=== PATIENT | male | born 1965 | race Caucasian/White ===

== ENCOUNTER 2018-01-23 00:04 | Inpatient (IN) ==
--- NOTE | 2018-01-23 00:37 | Emergency Department Note ---
Disposition Clinical Impression: Cellulitis Disposition: Admitted As Inpatient General Adult HPI - General Stated complaint: Swelling to toes Time Seen by Provider: 01/23/18 00:15 Source: patient Mode of arrival: ambulatory Limitations: no limitations Nursing Notes Reviewed: Yes Vital Signs Reviewed: Yes - History of Present Illness HPI Narrative: Patient was placed on antibiotics on and today he noticed his foot is more red streaking the emergency department for antibiotic IV according to his nurse practitioner. She told the nurse if the redness got any worse to come immediately to the emergency department. Patient states she noticed his foot was read earlier today and decided to wait until after midnight to come into the emergency department. He denies any fevers or chills nausea vomiting night sweats or other complaints. Onset (ago): day(s) (several) Location: left, lower extremity Radiation: non-radiation Pain Severity: mild Quality: burning Consistency: constant Improves with: nothing Worsens with: nothing Associated symptoms: Reports: denies other symptoms - Related Data Home Medications Medication Instructions Recorded Confirmed Aspirin Enteric Coated [Aspirin EC] 81 mg PO DAILY 09/13/15 01/23/18 Atorvastatin Calcium [Lipitor] 80 mg PO HS 09/13/15 01/23/18 Clopidogrel [Plavix] 75 mg PO DAILY 09/13/15 01/23/18 Metoprolol [Lopressor] 200 mg PO DAILY 09/13/15 01/23/18 Nitroglycerin [Nitrostat] 0.4 mg SL PRN PRN 09/13/15 01/23/18 Ranitidine HCl [Zantac] 150 mg PO BID PRN 09/13/15 01/23/18 Insulin Glargine,Hum.rec.anlog 35 unit SQ HS 11/10/17 01/23/18 [Basaglar Kwikpen U-100] Amlodipine Besylate 10 mg PO DAILY 11/11/17 01/23/18 Furosemide [Lasix] 20 mg PO Q48H PRN 11/11/17 01/23/18 Amoxicillin/Clavulanate [Augmentin] 875 mg PO BIDWM 01/23/18 01/23/18 BuPROPion XL (24 HR) [Wellbutrin 150 mg PO DAILY 01/23/18 01/23/18 XL] Doxycycline 100 mg PO BID 01/23/18 01/23/18 Isosorbide MONOnitrate [Isosorbide 30 mg PO BID 01/23/18 01/23/18 Mononitrate ER] Allergies Allergy/AdvReac Type Severity Reaction Status Date / Time No Known Allergies Allergy Verified 01/23/18 00:27 All systems ED: reviewed and negative except as stated. Review of Systems: As Per HPI Constitutional: Denies: fever, chills, weakness, weight change Eyes: Denies: eye pain, eye discharge, vision change ENT ED: Denies: ear pain, throat pain, dental pain, hearing loss, epistaxis, congestion, dysphagia Cardiovascular: Denies: chest pain, palpitations, dyspnea on exertion, edema, syncope Respiratory: Denies: cough, dyspnea, wheezes, hemoptysis, stridor Gastrointestinal: Denies: abdominal pain, nausea, vomiting, diarrhea, constipation, hematemesis, melena, hematochezia Genitourinary: Denies: urgency, dysuria, frequency, hematuria Musculoskeletal: Denies: back pain, neck pain, arthralgia, myalgia Integumentary: Denies: rash, abrasion, lesions Neurological: Denies: headache, weakness, numbness, paresthesias, confusion, abnormal gait, vertigo Psychiatric: Denies: anxiety, depression, suicidal thoughts, homicidal thoughts , auditory hallucinations, visual hallucinations Endocrine: Denies: fatigue Hematological/Lymphatic: Denies: easy bleeding, easy bruising Allergic/Immunologic: Denies: facial swelling, urticaria Past Medical History - Past Medical History Attestation: Yes The following information was validated with the patient. Source: patient Medical history: Reports: coronary artery disease, diabetes, GERD, hyperlipidemia, hypertension Surgical history: Reports: angioplasty/stent, arthroscopy, other Psychiatric history: Reports: no psych history - Social History Smoking Status: Current some day smoker Smokeless Tobacco Status: No Alcohol use: Reports: occasionally, recent Drug use: Reports: none Physical Exam - General Limitations: no limitations General appearance: alert, in no apparent distress - Head Head exam: atraumatic, normocephalic, normal inspection - Eye Eye exam: Present: normal appearance, PERRL, EOMI - ENT ENT exam: normal exam, normal oropharynx, mucous membranes moist - Neck Neck exam: Present: normal inspection, full ROM, trachea midline - Chest Chest inspection: Present: normal inspection, symmetric chest wall rise - Respiratory Respiratory exam: Present: normal lung sounds bilaterally - Cardiovascular Cardiovascular exam: Present: regular rate, normal rhythm, normal heart sounds - Abdominal Exam Abdominal exam: Present: soft - Extremities Exam Extremities exam: Present: other (redness and tenderness to dorsal left foot with 2nd toe with skin blistering and denuding skin) - Back Exam Back exam: Present: normal inspection - Neurological Exam Neurological exam: Present: alert, oriented X3 - Psychiatric Psychiatric exam: Present: normal affect, normal mood - Skin Skin exam: Present: warm, dry, intact, other (except as noted for left foot) Medical Decision Making - [facility] Narrative Medical decision making narrative: Case was discussed with Dr. Goode who accepts admission - Lab Data Lab results reviewed: Yes I reviewed the patient's lab results. Lab Results 01/23/18 Range/Units 00:13 POC Glucose 266 H (58-89)
[2018-01-23] MEDS ORDERED: 0.9 % Sodium Chloride 1,000 ML IVC SCH ×2 (00:45→04:02)
[2018-01-23 01:06] LABS: Basophils % 0.3 %; Eosinophils # 0.2 K/mcL (0.0-0.6); Eosinophils % 1.3 %; Hematocrit 31.5 % (37.5-50.1); Hemoglobin 10.7 g/dL (12.9-16.9); Immature Granulocytes % 0.3 % (0-4); Lymphocytes # 1.3 K/mcL (0.6-4.6); Lymphocytes % 11.3 %; Mean Corpuscular Volume 85.4 fL (83.0-100.0); Mean Platelet Volume 10.2 fL (9.4-12.4); Monocytes # 1.2 K/mcL (0.0-1.3); Monocytes % 10.6 %; Platelet Count 225 K/mcL (140-400); Red Blood Count 3.69 M/mcL (4.19-5.50); Red Cell Distribution Width 12.9 % (11.5-14.5); Segmented Neutrophils % 76.2 %
[2018-01-23] MEDS ORDERED: 0.9 % Sodium Chloride 250 ML IVC ONE (01:11)
[2018-01-23 01:27] LABS: Neutrophils # 8.8 K/mcL (1.6-8.9)
[2018-01-23] MEDS ORDERED: Famotidine 20 MG TABLET PO PRN (04:02)
[2018-01-23] MEDS ORDERED: Naloxone 0.4 MG/ML INJ IVP PRN (04:02)
[2018-01-23] MEDS ORDERED: Nitroglycerin 0.4 MG TAB.SUBL SL PRN (04:02)
[2018-01-23] MEDS ORDERED: Furosemide 20 MG TABLET PO PRN (04:02)
[2018-01-23] MEDS ORDERED: Doxycycline 100 MG CAPSULE PO SCH (09:00)
[2018-01-23] MEDS: BuPROPion XL (24 HR) 150 MG TABLET PO SCH (09:10)
[2018-01-23] MEDS: Isosorbide MONOnitrate (24 HR) 30 MG TAB.ER.24H PO SCH ×2 (09:10→20:35)
[2018-01-23] MEDS: Metoprolol XL (24 HR) Succ 50 MG TAB.ER.24H PO SCH (09:10)
[2018-01-23] MEDS: Aspirin Enteric Coated 81 MG Tablet PO SCH (09:10)
[2018-01-23] MEDS: amLODIPine 5 MG TABLET PO SCH (09:10)
--- NOTE | 2018-01-23 09:19 | Internal Med History&Physical ---
Date of Encounter: 01/23/18 Time of Encounter: 09:16 Assessment and Plan (1) Diabetes mellitus Current visit: Yes Status: Chronic on Insulin . will continue to monitor and adjsut his dose . Blood sugar was more then 200 last blood check Qualifiers: Diabetes mellitus type: type 2 Diabetes mellitus complication status: with unspecified complications Qualified Code(s): E11.8 - Type 2 diabetes mellitus with unspecified complications; Z79.4 - half-way (current) use of insulin; Z79.4 - intermediate project manager (current) use of insulin; Z79.4 - half-way (current) use of insulin; Z79.4 - intermediate project manager (current) use of insulin (2) Diabetic foot ulcer associated with diabetes mellitus due to underlying condition Current visit: Yes Status: Acute HBA1c ordered on insulin conitnue meds Blood Sugars AC and HS adjust as needed Qualifiers: Laterality: left Non-pressure ulcer stage: with muscle involvement without evidence of necrosis Qualified Code(s): E08.621 - Diabetes mellitus due to underlying condition with foot ulcer; L97.525 - Non-pressure chronic ulcer of other part of left foot with muscle involvement without evidence of necrosis; L97.525 - Non-pressure chronic ulcer of other part of left foot with muscle involvement without evidence of necrosis; L97.525 - Non-pressure chronic ulcer of other part of left foot with muscle involvement without evidence of necrosis ; L97.525 - Non-pressure chronic ulcer of other part of left foot with muscle involvement without evidence of necrosis (3) Cellulitis Current visit: Yes Status: Acute ulcer on his second toe nail is broken there is some fluctuation at the bottom of the toe on his pulp . redness extending upto middle dorsum . He received one dose of Van . Will clean ., get local cultures start IV broad spectrum Zosyn , MRI foot to r/o osteo and other supportive care / D/C IV fluids. Also to contact his podiatry if the has one for debridement if needed . Local Aquae Ag or equivalent dressing every day . He was oral Doxy and Augmentin. Failure to out patient oral antibiotics Qualifiers: Site of cellulitis of extremity: toe Laterality: left Qualified Code(s): L03.032 - Cellulitis of left toe Internal Medicine - H&P: HPI Admitted From: Home (lives jose tent) History of present illness: Mr. Escobar is a 52 year old male pt was admitted from ED where he came with increasing redness of the middle toe left side . he was taking oral Antibiosis and was told that if the redness gets worse he should go to the ED He denies any SOB Chest pain cough , nausea vomiting or any other complains He doens have some pain in his toe . His blood sugars are slightly high as well. He doesn't recall if he injured his foot . Past Med Surg Social Fam HX - Past Medical History Medical history: coronary artery disease, diabetes, GERD, hyperlipidemia, hypertension Psychiatric history: no psych history - Past Surgical History Surgical History: angioplasty/stent, arthroscopy, other - Social History Smoking Status: Former smoker Smokeless Tobacco Status: No Alcohol use: occasionally, recent Drug use: none - Family History Mother Family Member Ethnicity: Non- Living Status: Still Living Hx Family Cardiac Disorders: No Hx Family Respiratory Disorders: No Hx Family Cancer: No Father Living Status: Still Living Hx Family Endocrine Disorder: Yes (DM) Internal Medicine - H&P: Meds Aspirin Enteric Coated [Aspirin EC] 81 mg PO DAILY 09/13/15 [History] Atorvastatin Calcium [Lipitor] 80 mg PO HS 09/13/15 [History] Clopidogrel [Plavix] 75 mg PO DAILY 09/13/15 [History] Metoprolol [Lopressor] 200 mg PO DAILY 09/13/15 [History] Nitroglycerin [Nitrostat] 0.4 mg SL PRN PRN 09/13/15 [History] Ranitidine HCl [Zantac] 150 mg PO BID PRN 09/13/15 [History] Insulin Glargine,Hum.rec.anlog [Basaglar Kwikpen U-100] 35 unit SQ HS 11/10/17 [ History] Amlodipine Besylate 10 mg PO DAILY 11/11/17 [History] Furosemide [Lasix] 20 mg PO Q48H PRN 11/11/17 [History] Amoxicillin/Clavulanate [Augmentin] 875 mg PO BIDWM 01/23/18 [History] BuPROPion XL (24 HR) [Wellbutrin XL] 150 mg PO DAILY 01/23/18 [History] Doxycycline 100 mg PO BID 01/23/18 [History] Isosorbide MONOnitrate [Isosorbide Mononitrate ER] 30 mg PO BID 01/23/18 [ History] 3 Allergy/AdvReac Type Severity Reaction Status Date / Time No Known Allergies Allergy Verified 01/23/18 00:27 All Systems PM: A 10-system review of systems was performed and is negative for pertinent findings except as documented above in the HPI. - Constitutional Constitutional: fatigue, fever(s), no anorexia, no chills, no excessive sweating , no falls, no lethargy, no malaise, no night sweats, no weakness, no weight gain, no weight loss - EENT Eyes: no blurry vision, no diplopia, no discharge, no itchy eyes, no photophobia Ears: no decreased hearing, no ear discharge Nose, mouth and throat: no bleeding gums, no dry mouth, no lip swelling, no sinus pain, no sinus pressure, no sore throat - Cardiovascular Cardiovascular ROS IM: no chest pain, no claudication, no diaphoresis, no dyspnea, no dyspnea on exertion, no edema, no irregular heart rhythm, no lightheadedness, no orthopnea, no palpitations, no paroxysmal nocturnal dyspnea - Respiratory Respiratory: no cough, no dyspnea, no hemoptysis, no wheezing, no snoring, no pain on inspiration, no chest congestion, no change in phlegm color - Gastrointestinal Gastrointestinal: no abdominal pain, no belching, no bloating, no change in bowel habits, no diarrhea, no dyspepsia, no fecal incontinence, no heartburn, no hematemesis, no hematochezia, no loose stools, no melena, no nausea - Genitourinary Genitourinary ROS male: no dysuria, no flank pain, no genital lesions, no nocturia, no post void dribbling, no urinary hesitancy, no urinary incontinence - Musculoskeletal Musculoskeletal ROS IM: arthralgias, no joint swelling, no limited range of motion, no myalgias - Integumentary Integumentary IM: erythema, no pruritus, no rash, no unusual bruising Additional comments: foot and dorsum of left foot - Neurological Neurological ROS: no abnormal gait, no abnormal hearing, no behavioral changes, no confusion, no convulsions, no disequilibrium, no loss of vision, no radicular pain, no restless legs, no tremor(s), no weakness - Constitutional Vitals: Temp Pulse Resp BP Pulse Ox 97.6 F 78 18 170/86 94 01/23/18 07:00 01/23/18 07:00 01/23/18 07:00 01/23/18 07:00 01/23/18 07:00 General appearance: Present: A&O X 3, pleasant, obese, answers questions appropriately. Absent: no acute distress, severe distress - Head Head exam: Present: atraumatic - Eye Eye exam: Present: PERRL. Absent: scleral icterus, conjuntiva pink Pupils: Present: PERRL - ENT ENT exam: Present: mucous membranes moist - Neck Neck exam general surgery: Present: normal inspection, supple. Absent: tenderness, nuchal rigidity Additional comments: wearing a collar around his zamora with tags - Respiratory Respiratory exam: Present: CTAB. Absent: chest wall tenderness, respiratory distress, rhonchi, stridor, wheezes, tachypnea - Cardiovascular Cardiovascular exam: Present: RRR, +S1, +S2. Absent: irregular rhythm, JVD - GI/Abdominal GI/Abdominal exam: Present: normal bowel sounds, soft. Absent: distended, firm , guarding, rebound, rigid - Extremities Exam Extremities exam: Present: pedal edema, tenderness, warm Additional comments: left middle toe swollen red , has some fluctuation ,no discharge seems nail is almost broken .redness expanding to dorsum of the foot upto middle Pulses ++ bot pedal and post tibial . warm to touch some mild tenderness - Neurological Exam Neurological exam: Present: alert, CN II-XII intact, oriented X3, no focal deficits, strengths equal and symetr throughout. Absent: pronater drift, facial droop, speech deficit Internal Med - H&P Results - Labs CBC & Chem 7: 01/23/18 01:03 01/23/18 01:03
[2018-01-23] MEDS ORDERED: Piperacillin/Tazobactam 3.375 GM in 0.9 % Sodium Chloride Mini Bag 100 ML IVPB SCH ×2 (16:00→21:00)
[2018-01-23] MEDS: Insulin DETEMIR 100 UNIT/ML X5UNITS SQ SCH (20:35)
[2018-01-23] MEDS: Piperacillin/Tazobactam 3.375 GM in 0.9 % Sodium Chloride Mini Bag 100 ML IVPB SCH (23:54)
[2018-01-24 04:45] LABS: Hematocrit 28.6 % (37.5-50.1); Hemoglobin 9.5 g/dL (12.9-16.9); Mean Corpuscular HGB Conc 33.2 g/dL (31.6-35.5); Mean Corpuscular Hemoglobin 28.4 pg (28.0-33.3); Mean Corpuscular Volume 85.4 fL (83.0-100.0); Mean Platelet Volume 10.2 fL (9.4-12.4); Platelet Count 206 K/mcL (140-400); Red Blood Count 3.35 M/mcL (4.19-5.50); Red Cell Distribution Width 12.8 % (11.5-14.5)
[2018-01-24 05:00] LABS: Calcium 8.7 mg/dL (8.6-10.3)
[2018-01-24] MEDS: Aspirin Enteric Coated 81 MG Tablet PO SCH (08:41)
[2018-01-24] MEDS: Metoprolol XL (24 HR) Succ 50 MG TAB.ER.24H PO SCH (08:41)
[2018-01-24] MEDS: amLODIPine 5 MG TABLET PO SCH (08:41)
[2018-01-24] MEDS: BuPROPion XL (24 HR) 150 MG TABLET PO SCH (08:41)
[2018-01-24] MEDS: Isosorbide MONOnitrate (24 HR) 60 MG TAB.ER.24H PO SCH (08:45)
--- NOTE | 2018-01-24 09:06 | Internal Med Progress Note ---
Date of Encounter: 01/24/18 Time of Encounter: 09:04 - Assessment and plan (1) Diabetes mellitus Current Visit: Yes Status: Chronic Assessment and plan: stable and improving continue present medications . Qualifiers: Diabetes mellitus type: type 2 Diabetes mellitus complication status: with unspecified complications Qualified Code(s): E11.8 - Type 2 diabetes mellitus with unspecified complications; Z79.4 - conference concierge (current) use of insulin; Z79.4 - conference concierge (current) use of insulin; Z79.4 - conference concierge (current) use of insulin; Z79.4 - conference concierge (current) use of insulin (2) Diabetic foot ulcer associated with diabetes mellitus due to underlying condition Current Visit: Yes Status: Acute Assessment and plan: ulcer of the toe, also has osteomylitis . Local skin redness is getting better and will require on call pharmacy technician antibiotics for atleast 4/6 weeks as out patient . Another option is to have podiatry see him and intervene. Qualifiers: Laterality: left Non-pressure ulcer stage: with muscle involvement without evidence of necrosis Qualified Code(s): E08.621 - Diabetes mellitus due to underlying condition with foot ulcer; L97.525 - Non-pressure chronic ulcer of other part of left foot with muscle involvement without evidence of necrosis; L97.525 - Non-pressure chronic ulcer of other part of left foot with muscle involvement without evidence of necrosis; L97.525 - Non-pressure chronic ulcer of other part of left foot with muscle involvement without evidence of necrosis ; L97.525 - Non-pressure chronic ulcer of other part of left foot with muscle involvement without evidence of necrosis (3) Cellulitis Current Visit: Yes Status: Acute Assessment and plan: foot wbc back to normal redness is getting better in his foot. Qualifiers: Site of cellulitis of extremity: toe Laterality: left Qualified Code(s): L03.032 - Cellulitis of left toe (4) Renal insufficiency Current Visit: Yes Status: Acute Assessment and plan: Creatinine 2.1 ,improved after IV fluids and oral intake . Continue to improve Most likely due to dehydration . He lives in a tent and is Homeless.by choice . . - Subjective Interval history: Followup he seems to be doing fine States that he takes Imdur 2 tabs in the monring and one evening NO other issues no pain in foot . Xray shows osteomylitis - Constitutional Vitals: Temp Pulse Resp BP Pulse Ox 98.0 F 87 18 138/83 94 01/24/18 07:05 01/24/18 07:05 01/24/18 07:05 01/24/18 07:05 01/24/18 07:05 General appearance: Present: A&O X 3, pleasant, obese, answers questions appropriately. Absent: no acute distress, severe distress - Head Head exam: Present: atraumatic - Eye Eye exam: Present: PERRL. Absent: scleral icterus, conjuntiva pink Pupils: Present: PERRL - Neck Neck exam general surgery: Present: supple. Absent: nuchal rigidity - Respiratory Respiratory exam: Present: CTAB. Absent: respiratory distress, rhonchi, stridor , wheezes, tachypnea - Cardiovascular Cardiovascular exam: Present: RRR, +S1, +S2. Absent: irregular rhythm, JVD - GI/Abdominal GI/Abdominal exam: Present: normal bowel sounds, soft. Absent: distended, firm , rebound, rigid Additional comments: obese - Extremities Exam Extremities exam: Absent: pedal edema, tenderness Additional comments: local wound noted no new change no discharge - Neurological Exam Neurological exam: Present: CN II-XII intact, oriented X3, no focal deficits. Absent: facial droop, speech deficit Internal Medicine: Result - Labs CBC & Chem 7: 01/24/18 04:25 01/24/18 04:25 Labs: Short CBC 01/24/18 Range/Units 04:25 WBC 10.8 (4.3-11.1) K/mcL Hgb 9.5 L (12.9-16.9) g/dL Hct 28.6 L (37.5-50.1) % Plt Count 206 (140-400) K/mcL BMP 01/24/18 04:25 Sodium 136 Potassium 4.0 Chloride 107 Carbon Dioxide 23 BUN 23 H Creatinine 1.69 H Glucose 82 Calcium 8.7 - Impressions Impressions Toe X-Ray 01/23/18 12:30 IMPRESSION: 1. Osteomyelitis involving the tuft of the 2nd distal phalanx with an associated pathologic fracture through the base of the 2nd distal phalanx. 2. Interval healing of the fracture involving the mid diaphysis of the 5th metatarsal. D/ /23/2018 14:42:13 Lobito Solo MD / fern Interpreting Provider: Lobito Solo MD Consult Discharge Plan - Plan
[2018-01-24] MEDS: Piperacillin/Tazobactam 3.375 GM in D5% in Water (Mini-Bag+) 100 ML IVPB SCH ×2 (09:56→17:45)
[2018-01-24] MEDS: Piperacillin/Tazobactam 3.375 GM in 0.9 % Sodium Chloride Mini Bag 100 ML IVPB SCH (10:11)
[2018-01-24] MEDS: Insulin DETEMIR 100 UNIT/ML X5UNITS SQ SCH (20:21)
[2018-01-24] MEDS ORDERED: Isosorbide MONOnitrate (24 HR) 30 MG TAB.ER.24H PO SCH (21:00)
[2018-01-24] MEDS: Acetaminophen 325 MG TABLET PO PRN (23:24)
[2018-01-25] MEDS: Piperacillin/Tazobactam 3.375 GM in D5% in Water (Mini-Bag+) 100 ML IVPB SCH ×2 (01:27→09:54)
[2018-01-25] MEDS: BuPROPion XL (24 HR) 150 MG TABLET PO SCH (08:02)
[2018-01-25] MEDS: Isosorbide MONOnitrate (24 HR) 60 MG TAB.ER.24H PO SCH ×2 (08:03→21:34)
[2018-01-25] MEDS: amLODIPine 5 MG TABLET PO SCH (08:03)
[2018-01-25] MEDS: Aspirin Enteric Coated 81 MG Tablet PO SCH (08:03)
[2018-01-25] MEDS: Metoprolol XL (24 HR) Succ 50 MG TAB.ER.24H PO SCH (08:03)
[2018-01-25] MEDS ORDERED: Piperacillin/Tazobactam 3.375 GM in 0.9 % Sodium Chloride Mini Bag 100 ML IVPB SCH (12:00)
[2018-01-25] MEDS: Ampicillin/Sulbactam 1,500 MG in 0.9 % Sodium Chloride Mini Bag 100 ML IVPB SCH ×2 (18:19→23:31)
[2018-01-25] MEDS: Acetaminophen 325 MG TABLET PO PRN (21:34)
[2018-01-25] MEDS: Insulin DETEMIR 100 UNIT/ML X5UNITS SQ SCH (21:36)
[2018-01-26] MEDS: Ampicillin/Sulbactam 1,500 MG in 0.9 % Sodium Chloride Mini Bag 100 ML IVPB SCH ×3 (05:19→19:38)
[2018-01-26] MEDS: amLODIPine 5 MG TABLET PO SCH (06:51)
[2018-01-26] MEDS: Isosorbide MONOnitrate (24 HR) 60 MG TAB.ER.24H PO SCH ×2 (06:52→20:57)
[2018-01-26] MEDS: Metoprolol XL (24 HR) Succ 50 MG TAB.ER.24H PO SCH (06:52)
[2018-01-26] MEDS: Aspirin Enteric Coated 81 MG Tablet PO SCH (09:00)
[2018-01-26] MEDS: BuPROPion XL (24 HR) 150 MG TABLET PO SCH (09:00)
--- NOTE | 2018-01-26 09:24 | Internal Med Progress Note ---
Date of Encounter: 01/26/18 Time of Encounter: 09:20 - Assessment and plan (1) Diabetic foot ulcer associated with diabetes mellitus due to underlying condition Current Visit: Yes Status: Acute Assessment and plan: ulcer of the toe, has b een on IV atb. scheduled for outpatient surgery at [facility] today. on insulin for coverage of glucose. monitor FSBS. Qualifiers: Laterality: left Non-pressure ulcer stage: with muscle involvement without evidence of necrosis Qualified Code(s): E08.621 - Diabetes mellitus due to underlying condition with foot ulcer; L97.525 - Non-pressure chronic ulcer of other part of left foot with muscle involvement without evidence of necrosis; L97.525 - Non-pressure chronic ulcer of other part of left foot with muscle involvement without evidence of necrosis; L97.525 - Non-pressure chronic ulcer of other part of left foot with muscle involvement without evidence of necrosis ; L97.525 - Non-pressure chronic ulcer of other part of left foot with muscle involvement without evidence of necrosis - Time Spent With Patient less than 15 minutes - Subjective Interval history: pt scheduled for outpatient surgery at [facility] for amputation of left middle toe due to infection. denies pain or concerns at this time. denies SOB , chest pain, fever and chills. - Constitutional Vitals: Temp Pulse Resp BP Pulse Ox 98.7 F 86 16 150/77 95 01/26/18 07:23 01/26/18 07:23 01/26/18 07:23 01/26/18 07:23 01/26/18 07:23 General appearance: Present: A&O X 3, pleasant, obese, answers questions appropriately. Absent: no acute distress, severe distress - Head Head exam: Present: atraumatic, normocephalic - Eye Eye exam: Present: PERRL, conjuntiva pink, sclera anicteric Pupils: Present: PERRL - Neck Neck exam general surgery: Present: supple, trachea midline. Absent: lymphadenopathy - Respiratory Respiratory exam: Present: CTAB. Absent: accessory muscle use, rales, rhonchi, wheezes - Cardiovascular Cardiovascular exam: Present: RRR, +S1, +S2. Absent: diastolic murmur, gallop, rubs, systolic murmur - GI/Abdominal GI/Abdominal exam: Present: normal bowel sounds, soft, no peritoneal signs. Absent: distended, tenderness - Extremities Exam Extremities exam: Present: warm, radial pulses palpable and symmetrical. Absent : calf tenderness, cyanotic, pedal edema - Neurological Exam Neurological exam: Present: CN II-XII intact, oriented X3, no focal deficits. Absent: pronater drift, facial droop, speech deficit - Skin Skin exam: Present: dry, intact Additional comments: toes on left foot covered with dry drsg. no warmth, tenderness or edema to surrounding area. Internal Medicine: Result - Labs CBC & Chem 7: 01/24/18 04:25 01/24/18 04:25 Consult Discharge Plan - Plan Referrals: Sisi Duvall, RUDDY [Primary Care Provider] -
--- NOTE | 2018-01-26 10:53 | Internal Med Progress Note ---
Date of Encounter: 01/25/18 Time of Encounter: 10:00 - Assessment and plan (1) Diabetic foot ulcer Current Visit: No Status: Acute Assessment and plan: He is to complete Zosyn today. Based upon his culture Streptococcus species, will continue on Unasyn. I spoke at length with Dr. irizarry of podiatry and hospital administration. I also spoke with anesthesia at [facility]. 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 Depending on infection or involvement there, he may need ongoing antibiotics IV. If not, he could potentially be discharged on suppressive oral medications. Because of his chest discomfort, I asked anesthesia he needed any cardiology evaluation preop. Dr. Hartmann did not feel this was necessary. He was fine with increasing his indoor as noted below. We will hold his medications except for cardiovascular medications on the morning of surgery. Anesthesia asked that we hold his Lasix, this evening. 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 Qualifiers: Diabetes mellitus type: type 2 Diabetes mellitus complication status: with unspecified complications Qualified Code(s): E11.8 - Type 2 diabetes mellitus with unspecified complications; Z79.4 - shelter (current) use of insulin; Z79.4 - termination clerk (current) use of insulin; Z79.4 - shelter (current) use of insulin; Z79.4 - shelter (current) use of insulin (3) Renal insufficiency Current Visit: Yes Status: Acute Assessment and plan: Clinically stable to improved. We will follow intermittently. (4) Coronary artery disease Current Visit: Yes Status: Acute Assessment and plan: As above, will increase his Imdur from 60 in the morning and 30 in the evening to 6o mg twice a day. Qualifiers: Coronary Disease-Associated Artery/Lesion type: [place] artery [place] vs. transplanted heart: [place] heart Associated angina: with stable angina Qualified Code(s): I25.118 - Atherosclerotic heart disease of [place] coronary artery with other forms of angina pectoris - Time Spent With Patient 25 - 35 minutes - Subjective Interval history: Patient is feeling better. He notes decreased redness and swelling of the left second toe. Pain is now down to about 2/10. He denies fever, chills, sweats, etc. However, nursing notes that he has a mild elevation of his temperature. He admits to brief episodes of chest tightness that are his anginal symptoms. He has used no nitroglycerin as the discomfort resolve spontaneously. He has nitroglycerin available which he wears and an ampule around his neck. I encouraged him to use nitroglycerin with the supervision of the nurses here so they could document his use of same. He voices understanding. He has been discussing possible increase in his Imdur, with his animal ecologist. The next step they have discussed his to go to 60 mg twice a day and I told him we will go ahead and do that now. Patient has no complaint of chest discomfort, dyspnea, orthopnea, palpitations, nausea or vomiting, constipation or diarrhea, other changes in bowel habits, difficulty with urination, rash or itching, or other new complaints. Review of systems is otherwise unremarkable. We discussed antibiotics, culture results, plans to have input of podiatry, in clinic today. - Constitutional General appearance: Present: A&O X 3, pleasant, obese, answers questions appropriately. Absent: no acute distress, severe distress - Head Head exam: Present: atraumatic, normal inspection, normocephalic - Respiratory Respiratory exam: Present: CTAB. Absent: accessory muscle use - Cardiovascular Cardiovascular exam: Present: RRR. Absent: systolic murmur - GI/Abdominal GI/Abdominal exam: Absent: hepatomegaly, mass, pulsatile mass, splenomegaly, tenderness Additional comments: Obese and therefore difficult to palpate deeply. - Extremities Exam Extremities exam: Present: normal capillary refill. Absent: calf tenderness, pedal edema Additional comments: He has an open lesion at the tip of his left second toe. The left toe, itself, is only minimal erythematous and there is no erythema at the foot dorsum, as previously described. In other words, this seems quite improved first is previous examinations. - Neurological Exam Neurological exam: Present: CN II-XII intact, oriented X3, strengths equal and symetr throughout. Absent: facial droop, speech deficit - Psychiatric Psychiatric exam: Present: normal affect. Absent: anxious, depressed Internal Medicine: Result - Labs CBC & Chem 7: 01/24/18 04:25 18 04:25 Consult Discharge Plan - Plan Referrals: Sisi Duvall, FINISHING AREA OPERATOR [Primary Care Provider] -
[2018-01-26] MEDS: Insulin DETEMIR 100 UNIT/ML X5UNITS SQ SCH (20:58)
[2018-01-27] MEDS: Ampicillin/Sulbactam 1,500 MG in 0.9 % Sodium Chloride Mini Bag 100 ML IVPB SCH ×4 (00:37→21:44)
[2018-01-27] MEDS: Acetaminophen 325 MG TABLET PO PRN ×2 (00:38→10:31)
[2018-01-27] MEDS: Metoprolol XL (24 HR) Succ 50 MG TAB.ER.24H PO SCH (10:25)
[2018-01-27] MEDS: Aspirin Enteric Coated 81 MG Tablet PO SCH (10:25)
[2018-01-27] MEDS: BuPROPion XL (24 HR) 150 MG TABLET PO SCH (10:25)
[2018-01-27] MEDS: amLODIPine 5 MG TABLET PO SCH (10:25)
[2018-01-27] MEDS: Isosorbide MONOnitrate (24 HR) 60 MG TAB.ER.24H PO SCH ×2 (10:25→21:45)
--- NOTE | 2018-01-27 10:43 | Internal Med Progress Note ---
Date of Encounter: 01/27/18 Time of Encounter: 10:38 - Assessment and plan (1) Diabetic foot ulcer Current Visit: No Status: Acute Assessment and plan: We will continue Unasyn for 7 days. Thereafter, he will need oral antibiotics, probably in the form of amoxicillin or Augmentin. He will be transferred to [facility]. Please see history of present illness, above. 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 Qualifiers: Diabetes mellitus type: type 2 Diabetes mellitus complication status: with unspecified complications Diabetes mellitus termite exterminator helper insulin use: with termite exterminator helper use Qualified Code(s): E11.8 - Type 2 diabetes mellitus with unspecified complications; Z79.4 - ad terminal makeup operator (current) use of insulin; Z79.4 - ad terminal makeup operator ( current) use of insulin; Z79.4 - [facility] (current) use of insulin; Z79.4 - ad terminal makeup operator (current) use of insulin (3) Renal insufficiency Current Visit: Yes Status: Acute Assessment and plan: Clinically stable to improved. We will follow intermittently. (4) Coronary artery disease Current Visit: Yes Status: Acute Assessment and plan: Clinically stable to improved. Qualifiers: Coronary Disease-Associated Artery/Lesion type: [place] artery [place] vs. transplanted heart: [place] heart Associated angina: with stable angina Qualified Code(s): I25.118 - Atherosclerotic heart disease of [place] coronary artery with other forms of angina pectoris - Time Spent With Patient less than 15 minutes - Subjective Interval history: Patient is experiencing a headache this morning. Otherwise, he feels well. He denies other interval change. He notes that he is having less chest pain since increasing his evening dose of Imdur. He has minimal pain in his left foot, postoperatively. Patient has no complaint of chest discomfort, dyspnea, orthopnea, palpitations, nausea or vomiting, constipation or diarrhea, other changes in bowel habits, difficulty with urination, rash or itching, or other new complaints, except as mentioned above. Review of systems is otherwise unremarkable. We discussed antibiotics, culture results, discussion from Dr. Pacheco. Current plan will be to treat him with a week of IV antibiotics in the week of oral antibiotics, thereafter. He will need a PICC because of access in order to go to a correction facility. He will follow-up with Dr. Pacheco in about 7-10 days and have sutures removed in about [address] Pacheco would like to have a follow-up sedimentation rate and CRP, in about a week. It would be helpful if this could be drawn before his follow-up visit. - Constitutional Vitals: Temp Pulse Resp BP Pulse Ox 98.2 F 77 16 151/84 93 01/27/18 07:30 01/27/18 07:30 01/27/18 03:58 01/27/18 07:30 01/27/18 07:30 General appearance: Present: A&O X 3, pleasant, obese, answers questions appropriately. Absent: no acute distress, severe distress - Head Head exam: Present: atraumatic, normal inspection, normocephalic Additional comments: Face is slightly flushed. - Respiratory Respiratory exam: Present: CTAB. Absent: accessory muscle use - Cardiovascular Cardiovascular exam: Present: RRR. Absent: systolic murmur - GI/Abdominal GI/Abdominal exam: Present: normal bowel sounds, soft. Absent: hepatomegaly, mass, pulsatile mass, splenomegaly, tenderness - Extremities Exam Extremities exam: Present: normal capillary refill. Absent: calf tenderness, pedal edema Additional comments: Left foot wound is not undressed. Internal Medicine: Result - Labs CBC & Chem 7: 01/24/18 04:25 01/24/18 04:25 Consult Discharge Plan - Plan Referrals: Sisi Duvall CNP [Primary Care Provider] -
[2018-01-27] MEDS: Insulin DETEMIR 100 UNIT/ML X5UNITS SQ SCH (21:46)
[2018-01-28] MEDS: Ampicillin/Sulbactam 1,500 MG in 0.9 % Sodium Chloride Mini Bag 100 ML IVPB SCH ×3 (02:16→15:43)
[2018-01-28 07:06] LABS: Basophils # 0.1 K/mcL (0.0-0.2); Basophils % 0.5 %; Eosinophils # 0.4 K/mcL (0.0-0.6); Eosinophils % 3.8 %; Hematocrit 27.5 % (37.5-50.1); Hemoglobin 9.1 g/dL (12.9-16.9); Immature Granulocytes % 0.7 % (0-4); Lymphocytes % 10.2 %; Mean Corpuscular HGB Conc 33.1 g/dL (31.6-35.5); Mean Corpuscular Hemoglobin 28.4 pg (28.0-33.3); Mean Corpuscular Volume 85.9 fL (83.0-100.0); Mean Platelet Volume 10.5 fL (9.4-12.4); Monocytes # 0.8 K/mcL (0.0-1.3); Monocytes % 7.9 %; Neutrophils # 7.7 K/mcL (1.6-8.9); Platelet Count 232 K/mcL (140-400); Red Cell Distribution Width 12.7 % (11.5-14.5); Segmented Neutrophils % 76.9 %
[2018-01-28 07:28] LABS: Calcium 8.7 mg/dL (8.6-10.3); Potassium 3.9 mEq/L (3.5-5.1)
[2018-01-28] MEDS: Isosorbide MONOnitrate (24 HR) 60 MG TAB.ER.24H PO SCH (12:06)
[2018-01-28] MEDS: BuPROPion XL (24 HR) 150 MG TABLET PO SCH (12:06)
[2018-01-28] MEDS: amLODIPine 5 MG TABLET PO SCH (12:06)
[2018-01-28] MEDS: Aspirin Enteric Coated 81 MG Tablet PO SCH (12:06)
[2018-01-28] MEDS: Metoprolol XL (24 HR) Succ 50 MG TAB.ER.24H PO SCH (12:07)
--- NOTE | 2018-01-28 13:25 | Physician Discharge Referral ---
ExtendedCare Referral Info Transfer To: Extended care facility Provider in Charge after Transfer: PCP Institutional Level of Care: Skilled - Diagnosis (1) Diabetic foot ulcer Status: Acute (2) Diabetes mellitus Status: Chronic (3) Renal insufficiency Status: Acute (4) Coronary artery disease Status: Acute - Transfer Medications Home Medications: Aspirin Enteric Coated [Aspirin EC] 81 mg PO DAILY 09/13/15 [History] Atorvastatin Calcium [Lipitor] 80 mg PO HS 09/13/15 [History] Clopidogrel [Plavix] 75 mg PO DAILY 09/13/15 [History] Nitroglycerin [Nitrostat] 0.4 mg SL PRN PRN 09/13/15 [History] Ranitidine HCl [Zantac] 150 mg PO BID PRN 09/13/15 [History] Insulin Glargine,Hum.rec.anlog [Basaglar Kwikpen U-100] 35 unit SQ HS 11/10/17 [ History] Amlodipine Besylate 10 mg PO DAILY 11/11/17 [History] Furosemide [Lasix] 20 mg PO Q48H PRN 11/11/17 [History] BuPROPion XL (24 HR) [Wellbutrin XL] 150 mg PO DAILY 01/23/18 [History] Doxycycline 100 mg PO BID 01/23/18 [History] Isosorbide MONOnitrate (24 HR) [Imdur] 30 mg PO DAILY 01/26/18 [History] Isosorbide MONOnitrate (24 HR) [Imdur] 60 mg PO QAM 01/26/18 [History] Metoprolol Succinate [Metoprolol Succinate] 200 mg PO DAILY 01/26/18 [History] Allergies/Adverse Reactions: 3 Allergy/AdvReac Type Severity Reaction Status Date / Time No Known Allergies Allergy Verified 01/26/18 13:02 - Respiratory Orders Smoking Cessation: Smoking cessation has been advised. For more information, call the [place] Tobacco Quit Line at 0-097-PWPN-NOW. CERTIFICATION: I certify that the transfer of the above named patient to an Extended Care Facility is necessary for the continuing treatment of the diagnosis listed. The above information is true and accurate reflection of patient's current condition. Confidential - Redisclosure prohibited without a patient's written consent.
--- NOTE | 2018-01-28 14:44 | Discharge Summary ---
Date of Encounter: 01/28/18 Time of Encounter: 14:41 - Discharge Diagnosis (1) Diabetic foot ulcer Priority: Primary Status: Acute Comments: Patient's left foot ulceration was debrided per podiatry. Left foot dressing is dry and intact. Current plan will be to treat him with a week of IV antibiotics in the week of oral antibiotics, thereafter. He will need a PICC because of access in order to go to a longterm facility. He will follow- up with Dr. Irizarry in about 7-10 days and have sutures removed in about 3 weeks. Qualifiers: Diabetic foot ulcer location: toe Diabetes mellitus type: type 2 Laterality: left Non-pressure ulcer stage: with bone involvement without evidence of necrosis Qualified Code(s): E11.621 - Type 2 diabetes mellitus with foot ulcer; L97.526 - Non-pressure chronic ulcer of other part of left foot with bone involvement without evidence of necrosis; L97.526 - Non-pressure chronic ulcer of other part of left foot with bone involvement without evidence of necrosis; L97.526 - Non-pressure chronic ulcer of other part of left foot with bone involvement without evidence of necrosis; L97.526 - Non-pressure chronic ulcer of other part of left foot with bone involvement without evidence of necrosis (2) Diabetes mellitus Priority: Secondary Status: Chronic Comments: No acute issues during admission to facility. Patient to continue on current medications after discharge Qualifiers: Diabetes mellitus type: type 2 Diabetes mellitus complication status: with unspecified complications Diabetes mellitus long term care social worker insulin use: with detention use Qualified Code(s): E11.8 - Type 2 diabetes mellitus with unspecified complications; Z79.4 - custodial (current) use of insulin; Z79.4 - custodial ( current) use of insulin; Z79.4 - custodial (current) use of insulin; Z79.4 - custodial (current) use of insulin (3) Coronary artery disease Priority: Secondary Status: Acute Comments: No acute issues during this facility admission. Patient continue on current medications at home Qualifiers: Coronary Disease-Associated Artery/Lesion type: [place] artery [place] vs. transplanted heart: [place] heart Associated angina: with stable angina Qualified Code(s): I25.118 - Atherosclerotic heart disease of [place] coronary artery with other forms of angina pectoris Hospital course: Mr. Escobar is a 52 year old male, who was recently treated in the ED increasing redness of the middle toe left side. He was given oral ATB's and was told that if the redness gets worse he should go to the ED. patient was admitted for further treatment. Based upon his culture Streptococcus species, he was started on Unasyn. Pt seen by Dr. 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 We discussed antibiotics, culture results, discussion from Dr. Irizarry. Current plan will be to treat him with a week of IV antibiotics in the week of oral antibiotics, thereafter. He will need a PICC because of access in order to go to a longterm facility. He will follow-up with Dr. Irizarry in about 7-10 days and have sutures removed in about 3 weeks. Discharge discussed with: patient Time spent discussing smoking cessation with patient: 3 to 10 minutes - Time Spent with Patient Total time spent providing and/or coordinating discharge services: Less than 30 minutes - Discharge Medications Home Medications: Aspirin Enteric Coated [Aspirin EC] 81 mg PO DAILY 09/13/15 [History] Atorvastatin Calcium [Lipitor] 80 mg PO HS 09/13/15 [History] Clopidogrel [Plavix] 75 mg PO DAILY 09/13/15 [History] Nitroglycerin [Nitrostat] 0.4 mg SL PRN PRN 09/13/15 [History] Ranitidine HCl [Zantac] 150 mg PO BID PRN 09/13/15 [History] Insulin Glargine,Hum.rec.anlog [Basaglar Kwikpen U-100] 35 unit SQ HS 11/10/17 [ History] Amlodipine Besylate 10 mg PO DAILY 11/11/17 [History] Furosemide [Lasix] 20 mg PO Q48H PRN 11/11/17 [History] BuPROPion XL (24 HR) [Wellbutrin XL] 150 mg PO DAILY 01/23/18 [History] Doxycycline 100 mg PO BID 01/23/18 [History] Isosorbide MONOnitrate (24 HR) [Imdur] 30 mg PO DAILY 01/26/18 [History] Isosorbide MONOnitrate (24 HR) [Imdur] 60 mg PO QAM 01/26/18 [History] Metoprolol Succinate [Metoprolol Succinate] 200 mg PO DAILY 01/26/18 [History] Allergies/Adverse Reactions: 3 Allergy/AdvReac Type Severity Reaction Status Date / Time No Known Allergies Allergy Verified 01/26/18 13:02 Date of admission: 01/25/18 14:38 Primary care physician: Sisi Duvall CNP Consults: 01/27/18 10:49 Consult to Physical Therapy [CONS] Routine Comment: Evaluate, develop and implement POC Reason for Consult: Stability and safety of ambulation, transer, etc. Please see Dr. Saeed (podiatry) note about surgical care, etc. 01/27/18 16:01 Consult to Invasive Line Access Team [CONS] Routine Reason for Consult: dedicated intermodal truck driver medication-Unasyn to be given one week after d/ c Line Type: Midline PICC line indications: custodial Med/Antibiotic Discharging clinician: Trenton Johns Anticipated date of discharge: 01/28/18 - Constitutional Vitals: Temp Pulse Resp BP Pulse Ox 98.6 F 77 16 157/83 94 01/28/18 07:42 01/28/18 07:42 01/28/18 07:42 01/28/18 07:42 01/28/18 07:42 General appearance: Present: A&O X 3, pleasant, obese, answers questions appropriately. Absent: no acute distress, severe distress - Head Head exam: Present: atraumatic, normocephalic - Eye Eye exam: Present: PERRL, conjuntiva pink, sclera anicteric Pupils: Present: PERRL - Neck Neck exam general surgery: Present: supple, trachea midline. Absent: lymphadenopathy - Respiratory Respiratory exam: Present: CTAB. Absent: accessory muscle use, rales, rhonchi, wheezes - Cardiovascular Cardiovascular exam: Present: RRR, +S1, +S2. Absent: diastolic murmur, gallop, rubs, systolic murmur - GI/Abdominal GI/Abdominal exam: Present: normal bowel sounds, soft, no peritoneal signs. Absent: distended, tenderness - Extremities Exam Extremities exam: Present: warm, radial pulses palpable and symmetrical. Absent : calf tenderness, cyanotic, pedal edema Additional comments: dressing to left foot C,D & I. - Neurological Exam Neurological exam: Present: CN II-XII intact, oriented X3, no focal deficits. Absent: pronater drift, facial droop, speech deficit - Skin Skin exam: Present: dry, intact - Patient Status Disposition: Transfer SNF Condition: Good Functional capacity at discharge: uses cane/walker Overall status at discharge: patient is progressing back to baseline - Discharge Instructions Follow Up With: Sisi Duvall CNP [Primary Care Provider] - Forms: ED Satisfaction Letter - Diet and Activity Activity: ambulate only with your walker, as per physical therapy, increase activity as tolerated Diet: diabetic diet
[2018-01-28 16:51] VITALS: BP 128/67
== END 2018-01-28 18:45 | DRG 344 ==
LOC: EMEROOGRE 00:04 → INPGRE 00:04
PROVIDERS: ADMIT Internal Medicine; ATTEND Internal Medicine